=== PATIENT | male | born 1940 | race Caucasian/White ===

== ENCOUNTER 2023-07-23 07:39 | Emergency (ER) | payer MEDICARE, OTHER ==
[~2023-07-23] VITALS: Ht 172.7 cm; Wt 79.2 kg
[~2023-07-23 07:39] MED LIST: AMAR1TAB6; CALCCHW12; LOVA10TA; METOPROLOL TARTRATE; MYLI40DR; VASO20TA; ZANT150T
[2023-07-23] MEDS ORDERED: LOVA20TA2 (08:05)
[2023-07-23] MEDS ORDERED: METF500T13 (08:05)
[2023-07-23] MEDS ORDERED: DILT-44 (08:05)
[2023-07-23] MEDS ORDERED: MAGN400C2 PO (08:05)
[2023-07-23] MEDS ORDERED: CLOP75TA2 (08:05)
[2023-07-23] MEDS ORDERED: METO50TA7 (08:05)
[2023-07-23] MEDS ORDERED: GLIM4TAB5 (08:05)
[2023-07-23] MEDS ORDERED: OXYMETAZOLINE 0.05% NASAL SPRAY (AFRIN) ONE (09:50)
[2023-07-23 11:11] LABS: HEMATOCRIT 38.6 % (42.0-52.0); HEMOGLOBIN 12.9 g/dl (13.5-17.5); MEAN CORPUSCULAR HEMOGLOBIN 31.6 pg (27.0-33.0); MEAN CORPUSCULAR HGB CONC 33.4 g/dl (32.0-36.5); MEAN CORPUSCULAR VOLUME 94.6 fl (80.0-96.0); PLATELET COUNT, AUTOMATED 161 10^3/uL (150-450); RED BLOOD COUNT 4.08 10^6/uL (4.30-6.10); WHITE BLOOD COUNT 7.2 10^3/uL (4.0-10.0)
[2023-07-23 11:28] LABS: INR 1.18; PARTIAL THROMBOPLASTIN TIME 33.2 SECONDS (24.8-34.2); PROTHROMBIN TIME 14.7 SECONDS (12.5-14.5)
[2023-07-23 11:34] VITALS: BP 154/77; TEMP 98.3; O2SAT 98
== END 2023-07-23 11:47 | disposition home or self-care (01) ==
LOC: M ED 07:39
DX: R04.0 Epistaxis (principal); I48.91 Unspecified atrial fibrillation; I25.10 Atherosclerotic heart disease of native coronary artery without angina pectoris; I25.2 Old myocardial infarction; Z95.1 Presence of aortocoronary bypass graft; Z79.02 Long term (current) use of antithrombotics/antiplatelets; Z79.899 Other long term (current) drug therapy; Z88.5 Allergy status to narcotic agent; Z88.8 Allergy status to other drugs, medicaments and biological substances

== ENCOUNTER 2024-10-27 10:52 | Emergency (ER) | payer MEDICARE ==
[~2024-10-27] VITALS: Ht 170.2 cm; Wt 73.6 kg
[~2024-10-27 10:52] MED LIST changes: +CLOP75TA2; +DILT-44 PO; +GLIM4TAB5 PO; +LOVA20TA2 PO; +MAGN400C2 PO; +METF500T13 PO; +METO50TA7 PO
[2024-10-27] MEDS ORDERED: ISOVUE-370 76% 100ML VIAL As Ordered ONE (11:12)
[2024-10-27 11:33] LABS: BASO % 0.5 % (0.0-1.0); EOS % 0.6 % (0.0-3.0); HEMATOCRIT 21.3 % (42.0-52.0); HEMOGLOBIN 7.1 g/dl (13.5-17.5); LYMPH # 1.2 10^3/uL (1.5-5.0); LYMPH % 18.4 % (24.0-44.0); MEAN CORPUSCULAR HEMOGLOBIN 30.6 pg (27.0-33.0); MEAN CORPUSCULAR HGB CONC 33.3 g/dl (32.0-36.5); MEAN CORPUSCULAR VOLUME 91.8 fl (80.0-96.0); MONO # 0.7 10^3/uL (0.0-0.8); MONO % 10.3 % (2.0-8.0); NEUTROPHILS # 4.5 10^3/uL (1.5-8.5); NEUTROPHILS % 69.7 % (36.0-66.0); PLATELET COUNT, AUTOMATED 156 10^3/uL (150-450); RED BLOOD COUNT 2.32 10^6/uL (4.30-6.10); WHITE BLOOD COUNT 6.5 10^3/uL (4.0-10.0)
[2024-10-27 11:47] LABS: INR 1.19; PARTIAL THROMBOPLASTIN TIME 31.8 SECONDS (24.8-34.2); PROTHROMBIN TIME 15.4 SECONDS (12.5-14.5)
[2024-10-27 12:05] LABS: CK-MB VALUE MASS 1.7 NG/ML (<3.6)
[2024-10-27 12:08] LABS: BLOOD UREA NITROGEN 59 MG/DL (9-23); CALCIUM LEVEL 8.8 MG/DL (8.3-10.6); CARBON DIOXIDE LEVEL 26 MMOL/L (20-31); CHLORIDE LEVEL 102 MMOL/L (98-107); CPK CREATINE PHOSPHOKINASE 25 U/L (46-171); CREATININE FOR GFR 1.18 MG/DL (0.70-1.30); GLOMERULAR FILTRATION RATE > 60.0 (>35); GLUCOSE, FASTING 193 MG/DL (74-106); POTASSIUM SERUM 4.2 MMOL/L (3.5-5.1); SODIUM LEVEL 138 MMOL/L (136-145)
[2024-10-27 13:03] LABS: INR 1.18; PARTIAL THROMBOPLASTIN TIME 31.5 SECONDS (24.8-34.2); PROTHROMBIN TIME 15.3 SECONDS (12.5-14.5)
[2024-10-27] MEDS ORDERED: POTA-150 PO (13:21)
[2024-10-27] MEDS ORDERED: PANT40TA29 PO (13:21)
[2024-10-27] MEDS ORDERED: BAYE325T2 PO (13:21)
[2024-10-27] MEDS ORDERED: FURO20TA2 PO (13:21)
[2024-10-27 13:22] LABS: LIPASE 43 U/L (12-53)
[2024-10-27 13:24] LABS: ALBUMIN 3.2 G/DL (3.2-5.2); ALKALINE PHOSPHATASE 71 U/L (40-129); ALT/SGPT 17 U/L (7.0-40); AMYLASE 56 U/L (30-118); AST/SGOT 22 U/L (<34); BILIRUBIN,DIRECT 0.3 MG/DL (<0.4); BILIRUBIN,TOTAL 0.6 MG/DL (0.3-1.2); CK-MB VALUE MASS < 1.0 NG/ML (<3.6); TOTAL PROTEIN 6.2 G/DL (5.7-8.2)
[2024-10-27] MEDS ORDERED: HOME MED LIST COMPLETE! XX SCH (13:25)
[2024-10-27 13:33] LABS: CPK CREATINE PHOSPHOKINASE 35 U/L (46-171); MB/CK RELATIVE INDEX 2.85 (< OR =4)
[2024-10-27] MEDS: PANTOPRAZOLE 40MG VIAL IV ONE (13:50)
[2024-10-27 14:23] VITALS: BP 117/54; TEMP 99.4; O2SAT 98
[2024-10-27 14:41] VITALS: BP 129/60; TEMP 97.9; O2SAT 97
[2024-10-27 15:26] VITALS: BP 135/59; TEMP 97.7; O2SAT 98
== END 2024-10-27 15:29 | disposition short-term general hospital (02) ==
LOC: M ED 10:52 → EDBD 10:52 → M ED 15:29
DX: I63.511 Cerebral infarction due to unspecified occlusion or stenosis of right middle cerebral artery (principal); I48.91 Unspecified atrial fibrillation; I45.10 Unspecified right bundle-branch block; I25.119 Atherosclerotic heart disease of native coronary artery with unspecified angina pectoris; E11.9 Type 2 diabetes mellitus without complications; I10 Essential (primary) hypertension; Z88.5 Allergy status to narcotic agent; Z88.8 Allergy status to other drugs, medicaments and biological substances; Z79.1 Long term (current) use of non-steroidal anti-inflammatories (NSAID); Z79.899 Other long term (current) drug therapy
CPT/HCPCS: 70450; 70496; 70498; 71045; 80047; 80048; 80076; 82150; 82550; 82553; 83690; 84484; 85025; 85610; 85730; 86850; 86900; 86901; 86920; 93005; 93041; 94760; 96374; 99285; J2470; P9016; Q9967